=== PATIENT | male | born 1970 | race Hispanic/Latino ===

== ENCOUNTER 2016-03-29 09:31 | Outpatient (CLI) | payer BC ==
[2016-03-29 10:51] LABS: #Basophils 0.1 thou/uL (0.0-0.2); #Eosinphils 0.4 thou/uL (0.0-0.7); #Lymphocytes 1.6 thou/uL (1.20-3.40); #Monocytes 0.6 thou/uL (0.11-0.59); %Monocytes 6.7 % (0.0-10.0); Hematocrit 46.2 % (42.0-52.0); Mean Platelet Volume 8.3 fL (7.4-10.4); Red Blood Cell (RBC) Count 5.07 mill/uL (4.70-6.10); White Blood Cell (WBC) Count 8.7 thou/uL (4.8-10.8)
[2016-03-29 11:12] LABS: ALT (SGPT) 19 U/L (0-55); AST (SGOT) 18 U/L (5-34); Alkaline Phosphatase 70 U/L (40-150); Anion Gap 15 mmol/L (10-20); BUN (Urea Nitrogen) 17 mg/dL (8.9-20.6); Calc. Creatinine Clearance 0 mL/min (70-130); Carbon Dioxide 21 mmol/L (22-29); Chloride 110 mmol/L (98-107); Estimated GFR-MDRD 88; Globulin 2.9 g/dL (2.4-3.5); LDL Cholesterol, Calculated 122 mg/dL; Protein, Total 7.1 g/dL (6.0-8.3)
== END 2016-03-29 09:32 ==
LOC: HPCALD 09:31
PROVIDERS: ATTEND Family Medicine
DX: Z13.6 Encounter for screening for cardiovascular disorders (principal); R07.9 Chest pain, unspecified
CPT/HCPCS: 36415; 80053; 80061; 84443; 85025

== ENCOUNTER 2016-04-17 22:47 | Emergency (ER) | payer OTHER ==
[2016-04-17 23:46] LABS: Methadone Not Detected (NotDetected); Methamphetamine Not Detected (NotDetected)
[2016-04-17 23:54] LABS: ALT (SGPT) 15 U/L (0-55); AST (SGOT) 15 U/L (5-34); Alkaline Phosphatase 78 U/L (40-150); Anion Gap 10 mmol/L (10-20); BUN (Urea Nitrogen) 21 mg/dL (8.9-20.6); Bilirubin, Total 0.3 mg/dL (0.2-1.2); Calc. Creatinine Clearance 0 mL/min (70-130); Calcium 8.4 mg/dL (7.8-10.44); Carbon Dioxide 21 mmol/L (22-29); Chloride 114 mmol/L (98-107); Estimated GFR-MDRD Greater than 90; Globulin 3.1 g/dL (2.4-3.5)
[2016-04-17] MEDS ORDERED: Diazepam 10 MG/2 ML SYRINGE ONE (23:56)
[2016-04-18] MEDS ORDERED: Lorazepam 0.5 MG TAB ONE (00:05)
== END 2016-04-18 00:10 | disposition home or self-care (01) ==
LOC: BURERS 22:47
DX: F41.9 Anxiety disorder, unspecified (principal)
CPT/HCPCS: 36415; 80053; 80306; 99283; J3360

== ENCOUNTER 2016-06-30 16:14 | Outpatient (CLI) | payer BC ==
[2016-06-30 16:44] LABS: Amphetamine Not Detected (NotDetected); Barbiturates Screen Not Detected (NotDetected); Benzodiazepine Screen Detected (NotDetected); Cocaine Metabolite Screen Not Detected (NotDetected); Medtox Control Line Valid? VALID (VALID); Methadone Not Detected (NotDetected); Methamphetamine Not Detected (NotDetected); Opiate Screen Not Detected (NotDetected); Oxycodone Screen Not Detected (NotDetected); Phencyclidine (PCP) Not Detected (NotDetected); THC/Cannabinoid Screen Not Detected (NotDetected); Tricyclic Screen Not Detected (NotDetected)
== END 2016-06-30 16:15 | disposition home or self-care (01) ==
LOC: HPCALD 16:14
PROVIDERS: ATTEND Family Medicine
DX: R30.0 Dysuria (principal); R07.9 Chest pain, unspecified
CPT/HCPCS: 36415; 80306; 84153